=== PATIENT | male | born 1960 | race Caucasian/White ===

== ENCOUNTER 2021-12-13 13:36 | Emergency (ER) | payer MEDICAID ==
[~2021-12-13] VITALS: Ht 175.3 cm; Wt 54.0 kg
[2021-12-13] MEDS ORDERED: DIPHENHYDRAMINE 50MG/ML VIAL IM STA (17:33)
[2021-12-13] MEDS ORDERED: HALOPERIDOL LACTATE 5MG/ML VIAL IM STA (17:33)
[2021-12-13] MEDS ORDERED: DIAZEPAM 5 MG/ML 2ML CPJ IM ONE ×2 (17:45→19:15)
[2021-12-13] MEDS ORDERED: SODIUM CHLORIDE 0.9% 1,000 ML IV ONE (17:45)
[2021-12-13 18:21] LABS: BASOPHILS % 0.4 % (0.0-2.0); EOSINOPHILS % 1.4 % (0.0-5.0); HEMATOCRIT. 44.2 % (42.0-52.0); HEMOGLOBIN. 14.9 g/dL (14.0-18.0); LYMPHOCYTES % 24.2 % (20.0-50.0); MEAN CORPUSCULAR HEMOGLOBIN 33.1 pg (28.0-32.0); MEAN CORPUSCULAR VOLUME 97.9 fL (80.0-94.0); MEAN PLATELET VOLUME 9.3 fl (7.4-10.4); MONOCYTES % 9.2 % (2.0-8.0); NEUTROPHILS % 64.8 % (40.0-76.0); PLATELET 225 x1000/uL (130-400); RED BLOOD CELL COUNT 4.51 mill/uL (4.7-6.1); RED CELL DISTRIBUTION WIDTH 12.3 % (11.6-14.6)
[2021-12-13 18:24] LABS: CHLORIDE 107 mEq/L (98-107)
[2021-12-13] MEDS ORDERED: HALOPERIDOL LACTATE 5MG/ML VIAL IM NR (18:45)
[2021-12-13] MEDS ORDERED: DIATR MEGLU/DIATRIZOATE SOLN 30ML ONE (19:14)
[2021-12-14 04:55] VITALS: BP 86/60
== END 2021-12-14 05:06 ==
LOC: ER 13:36
DX: K94.23 Gastrostomy malfunction (principal); F20.9 Schizophrenia, unspecified; R45.1 Restlessness and agitation; D64.9 Anemia, unspecified
CPT/HCPCS: 36415; 74018; 80053; 85025; 96360; 96361; 96372; 99285; J1200; J1630; J3360; J7030; Q9963

== ENCOUNTER 2022-02-03 17:18 | Inpatient (IN) | payer MEDICAID ==
[~2022-02-03] VITALS: Ht 165.1 cm; Wt 52.2 kg
[2022-02-03] MEDS ORDERED: LEVETIRACETAM 500MG PREMIX 100 ML IV ONE ×2 (17:45→20:15)
[2022-02-03] MEDS ORDERED: MIDAZOLAM HCL 2 MG/2 ML VIAL IV ONE (17:45)
[2022-02-03] MEDS ORDERED: SODIUM CHLORIDE 0.9% 1000ML BAG (SEPSIS BOLUS) IV ONE (17:45)
[2022-02-03 17:56] LABS: BASOPHILS % 0.2 % (0.0-2.0); EOSINOPHILS % 1.3 % (0.0-5.0); HEMATOCRIT. 46.2 % (42.0-52.0); HEMOGLOBIN. 15.5 g/dL (14.0-18.0); LYMPHOCYTES % 10.3 % (20.0-50.0); MEAN CORPUSCULAR HEMOGLOBIN 32.8 pg (28.0-32.0); MEAN CORPUSCULAR VOLUME 97.6 fL (80.0-94.0); MEAN PLATELET VOLUME 9.4 fl (7.4-10.4); MONOCYTES % 3.9 % (2.0-8.0); NEUTROPHILS % 84.3 % (40.0-76.0); PLATELET 238 x1000/uL (130-400); RED BLOOD CELL COUNT 4.73 mill/uL (4.7-6.1); RED CELL DISTRIBUTION WIDTH 12.4 % (11.6-14.6)
[2022-02-03 18:22] LABS: CHLORIDE 107 mEq/L (98-107)
[2022-02-03 18:33] LABS: ETHANOL BLOOD < 10 mg/dL
[2022-02-03 18:45] LABS: CARBAMAZEPINE < 0.5 ug/mL (4-12); PHENOBARBITAL < 2.1 ug/mL (15.0-40.0); VALPROIC ACID < 3.0 ug/mL (50-100)
[2022-02-03 19:28] LABS: PARTIAL THROMBOPLASTIN TIME 23.6 sec (23.4-31.0); PROTHROMBIN TIME 10.6 sec (9.6-11.0)
[2022-02-03 23:36] VITALS: BP_SYST 95
[2022-02-04] VITALS (36 sets, daily range): BP systolic 59–152; BP diastolic 28–112
[2022-02-04] MEDS: DEXT 5%/0.45% NACL 1000ML 1,000 ML IV SCH ×3 (00:45→20:28)
[2022-02-04 07:27] LABS: BASOPHILS % 0.5 % (0.0-2.0); EOSINOPHILS % 1.9 % (0.0-5.0); HEMATOCRIT. 38.6 % (42.0-52.0); HEMOGLOBIN. 13.2 g/dL (14.0-18.0); LYMPHOCYTES % 26.2 % (20.0-50.0); MEAN CORPUSCULAR VOLUME 96.9 fL (80.0-94.0); MEAN PLATELET VOLUME 9.5 fl (7.4-10.4); MONOCYTES % 8.5 % (2.0-8.0); NEUTROPHILS % 62.9 % (40.0-76.0); PLATELET 181 x1000/uL (130-400); RED BLOOD CELL COUNT 3.98 mill/uL (4.7-6.1)
[2022-02-04 07:31] LABS: CHLORIDE 112 mEq/L (98-107)
[2022-02-04 12:23] LABS: BASOPHILS % 0.6 % (0.0-2.0); EOSINOPHILS % 2.7 % (0.0-5.0); HEMATOCRIT. 37.7 % (42.0-52.0); HEMOGLOBIN. 12.9 g/dL (14.0-18.0); LYMPHOCYTES % 29.8 % (20.0-50.0); MEAN CORPUSCULAR VOLUME 96.3 fL (80.0-94.0); MEAN PLATELET VOLUME 9.5 fl (7.4-10.4); MONOCYTES % 9.8 % (2.0-8.0); NEUTROPHILS % 57.1 % (40.0-76.0); PLATELET 193 x1000/uL (130-400); RED BLOOD CELL COUNT 3.92 mill/uL (4.7-6.1); RED CELL DISTRIBUTION WIDTH 12.1 % (11.6-14.6)
[2022-02-04 12:29] LABS: CHLORIDE 109 mEq/L (98-107)
[2022-02-04] MEDS ORDERED: LORAZEPAM 1MG TABLET PO PRN (13:00)
[2022-02-04] MEDS: LORAZEPAM 2MG/ML CPJ IV PRN ×2 (13:51→23:11)
[2022-02-04] MEDS: DOCUSATE SODIUM SUGAR FREE 100MG/10ML UDC GT SCH (13:57)
[2022-02-04] MEDS: ENOXAPARIN 40MG/0.4ML SYR SUBCUT SCH (13:58)
[2022-02-04] MEDS ORDERED: LORAZEPAM 2MG/ML CPJ IV NR (16:00)
[2022-02-04 17:18] LABS: CLARITY URINE CLEAR (CLEAR); COLOR URINE YELLOW (YELLOW); KETONES URINE TRACE (NEGATIVE); LEUKOCYTE ESTERASE URINE TRACE (NEGATIVE); NITRITE URINE NEGATIVE (NEGATIVE); OCCULT BLOOD URINE 2+ (NEGATIVE); PH URINE 5.5 (4.5-8.0); PROTEIN URINE 2+ (NEGATIVE); SPECIFIC GRAVITY URINE 1.024 (1.005-1.030)
[2022-02-04 17:30] LABS: *AMPHETAMINES SCREEN URINE NEGATIVE (NEGATIVE); *BARBITURATES SCREEN URINE NEGATIVE (NEGATIVE); *BENZODIAZEPINES SCREEN URINE PRESUMTIVE POSITIVE (NEGATIVE); *COCAINE SCREEN URINE NEGATIVE (NEGATIVE); CANNABINOID URINE SCREEN NEGATIVE (NEGATIVE); METHADONE URINE SCREEN NEGATIVE (NEGATIVE); OPIATES URINE SCREEN NEGATIVE (NEGATIVE); PHENCYCLIDINE URINE SCREEN NEGATIVE (NEGATIVE)
[2022-02-04] MEDS ORDERED: NA PHOS,M-B/NA PHOS,DI-BA ENEMA 118ML PR NR (17:30)
[2022-02-04] MEDS ORDERED: POLYETHYLENE GLYCOL 3350 (17GM) 1 DOSE PACK PO NR (17:30)
[2022-02-04] MEDS: HALOPERIDOL LACTATE 5MG/ML VIAL IM PRN (20:27)
[2022-02-05] VITALS (34 sets, daily range): BP systolic 102–153; BP diastolic 30–77
[2022-02-05 05:28] LABS: BASOPHILS % 0.4 % (0.0-2.0); EOSINOPHILS % 2.9 % (0.0-5.0); HEMOGLOBIN. 12.6 g/dL (14.0-18.0); LYMPHOCYTES % 27.6 % (20.0-50.0); MEAN CORPUSCULAR HEMOGLOBIN 33.4 pg (28.0-32.0); MEAN CORPUSCULAR VOLUME 95.6 fL (80.0-94.0); MEAN PLATELET VOLUME 9.4 fl (7.4-10.4); MONOCYTES % 10.2 % (2.0-8.0); NEUTROPHILS % 58.9 % (40.0-76.0); PLATELET 173 x1000/uL (130-400); RED BLOOD CELL COUNT 3.77 mill/uL (4.7-6.1); RED CELL DISTRIBUTION WIDTH 12.1 % (11.6-14.6)
[2022-02-05 05:49] LABS: CHLORIDE 110 mEq/L (98-107)
[2022-02-05] MEDS: DEXT 5%/0.45% NACL 1000ML 1,000 ML IV SCH ×2 (06:25→17:10)
[2022-02-05] MEDS: HALOPERIDOL LACTATE 5MG/ML VIAL IM PRN ×3 (06:27→17:10)
[2022-02-05] MEDS: LORAZEPAM 2MG/ML CPJ IV PRN ×2 (08:12→15:07)
[2022-02-05] MEDS: POLYETHYLENE GLYCOL 3350 (17GM) 1 DOSE PACK PO SCH (09:00)
[2022-02-05] MEDS: DOCUSATE SODIUM SUGAR FREE 100MG/10ML UDC GT SCH (09:00)
[2022-02-05] MEDS: ENOXAPARIN 40MG/0.4ML SYR SUBCUT SCH (09:58)
[2022-02-05] MEDS ORDERED: SODIUM BICARBONATE 650 MG TABLET GT SCH (10:30)
[2022-02-05] MEDS ORDERED: SODIUM BICARBONATE 650 MG TABLET GT PRN (11:00)
[2022-02-05] MEDS ORDERED: POTASSIUM CHLORIDE INJ 40 MEQ in DEXT 5% WATER 250 ML IV ONE (14:15)
[2022-02-05] MEDS: KCL 20MEQ/100ML X 2 FOR TOTAL KCL 40MEQ/200ML IV SCH ×2 (15:07→17:10)
[2022-02-05] MEDS ORDERED: MIDODRINE HCL 5MG TABLET GT PRN (20:00)
[2022-02-05 21:51] LABS: BG BASE EXCESS 0.3 mmol/L (-2.0-2.0); BG CARBOXYHEMOGLOBIN 0.3 % (0.5-1.5); BG DEOXYHEMOGLOBIN 7.8 % (0.0-5.0); BG FRACTION INSPIRED OXYGEN 21; BG HCO3 ACT 23.9 mmol/L (22.0-26.0); BG METHEMOGLOBIN 0.3 % (0.0-1.5); BG OXYGEN SATURATION 92.2 % (92.0-98.5); BG OXYHEMOGLOBIN 91.6 % (94.0-97.0); BG PCO2 35.4 mmHg (35.0-45.0); BG PH 7.448 (7.350-7.450); BG PO2 59.3 mmHg (75.0-100.0); BG SAMPLE SITE RIGHT RADIAL; BG TOTAL HEMOGLOBIN 12.9 g/dL (12.0-18.0); BG VENT MODE ROOM AIR
[2022-02-06] VITALS (7 sets, daily range): BP systolic 105–127; BP diastolic 54–71
[2022-02-06] MEDS: DEXT 5%/0.45% NACL 1000ML 1,000 ML IV SCH (05:03)
[2022-02-06 08:26] LABS: BASOPHILS % 0.3 % (0.0-2.0); EOSINOPHILS % 3.9 % (0.0-5.0); HEMATOCRIT. 38.3 % (42.0-52.0); HEMOGLOBIN. 13.3 g/dL (14.0-18.0); LYMPHOCYTES % 25.4 % (20.0-50.0); MEAN CORPUSCULAR HEMOGLOBIN 33.3 pg (28.0-32.0); MEAN PLATELET VOLUME 9.5 fl (7.4-10.4); MONOCYTES % 9.1 % (2.0-8.0); NEUTROPHILS % 61.3 % (40.0-76.0); PLATELET 182 x1000/uL (130-400); RED BLOOD CELL COUNT 3.99 mill/uL (4.7-6.1); RED CELL DISTRIBUTION WIDTH 12.1 % (11.6-14.6)
[2022-02-06 08:32] LABS: CHLORIDE 110 mEq/L (98-107)
[2022-02-06] MEDS: ENOXAPARIN 40MG/0.4ML SYR SUBCUT SCH (08:55)
[2022-02-06] MEDS: POLYETHYLENE GLYCOL 3350 (17GM) 1 DOSE PACK PO SCH (09:00)
[2022-02-06] MEDS: DOCUSATE SODIUM SUGAR FREE 100MG/10ML UDC GT SCH (09:00)
[2022-02-06] MEDS ORDERED: POTASSIUM CHLORIDE 20MEQ/PACKET PO NR (09:15)
[2022-02-06] MEDS: HALOPERIDOL LACTATE 5MG/ML VIAL IM PRN (13:10)
[2022-02-06] MEDS: POTASSIUM CHLORIDE INJ 40 MEQ in DEXT 5%/0.9% NACL 1,000 ML IV SCH (13:24)
[2022-02-07] VITALS: BP 97/49
[2022-02-07] MEDS: POTASSIUM CHLORIDE INJ 40 MEQ in DEXT 5%/0.9% NACL 1,000 ML IV SCH ×2 (00:10→09:21)
[2022-02-07 04:00] VITALS: BP 105/58
[2022-02-07 08:00] VITALS: BP 103/59
[2022-02-07] MEDS: POLYETHYLENE GLYCOL 3350 (17GM) 1 DOSE PACK PO SCH (09:00)
[2022-02-07] MEDS: DOCUSATE SODIUM SUGAR FREE 100MG/10ML UDC GT SCH (09:00)
[2022-02-07] MEDS: ENOXAPARIN 40MG/0.4ML SYR SUBCUT SCH (09:21)
[2022-02-07] MEDS ORDERED: BISACODYL 10MG SUPP PR PRN (11:00)
[2022-02-07] MEDS ORDERED: NA PHOS,M-B/NA PHOS,DI-BA ENEMA 118ML PR NR (11:15)
[2022-02-07 12:00] VITALS: BP 114/63
[2022-02-07 13:02] LABS: CHLORIDE 112 mEq/L (98-107)
[2022-02-07] MEDS ORDERED: DEXT 5%/0.9% NACL 1,000 ML IV SCH (14:09)
[2022-02-07] MEDS: DEXT 5%/0.9% NACL 1,000 ML IV SCH (14:25)
[2022-02-07 15:55] VITALS: BP 102/57
[2022-02-07 20:00] VITALS: BP 148/66
[2022-02-08] VITALS: BP 139/80
[2022-02-08 04:00] VITALS: BP 109/69
[2022-02-08 05:52] LABS: BASOPHILS % 0.4 % (0.0-2.0); EOSINOPHILS % 3.5 % (0.0-5.0); HEMATOCRIT. 39.4 % (42.0-52.0); HEMOGLOBIN. 13.4 g/dL (14.0-18.0); LYMPHOCYTES % 17.2 % (20.0-50.0); MEAN CORPUSCULAR HEMOGLOBIN 32.9 pg (28.0-32.0); MEAN PLATELET VOLUME 9.3 fl (7.4-10.4); MONOCYTES % 9.9 % (2.0-8.0); PLATELET 188 x1000/uL (130-400); RED BLOOD CELL COUNT 4.06 mill/uL (4.7-6.1); RED CELL DISTRIBUTION WIDTH 12.1 % (11.6-14.6)
[2022-02-08 06:12] LABS: CHLORIDE 112 mEq/L (98-107)
[2022-02-08 08:00] VITALS: BP 94/67
[2022-02-08] MEDS: POLYETHYLENE GLYCOL 3350 (17GM) 1 DOSE PACK PO SCH (09:00)
[2022-02-08] MEDS: ENOXAPARIN 40MG/0.4ML SYR SUBCUT SCH (09:00)
[2022-02-08] MEDS: DOCUSATE SODIUM SUGAR FREE 100MG/10ML UDC GT SCH (09:00)
[2022-02-08] MEDS: DEXT 5%/0.9% NACL 1,000 ML IV SCH (11:06)
[2022-02-08 12:00] VITALS: BP 113/58
[2022-02-08] MEDS ORDERED: IPRATROPIUM/ALBUTEROL 0.5-3(2.5)MG/3ML NEB HHN PRN (14:45)
[2022-02-08 16:00] VITALS: BP 98/64
[2022-02-08 20:00] VITALS: BP 115/61
[2022-02-09] VITALS: BP 94/58
[2022-02-09 04:00] VITALS: BP 96/52
[2022-02-09 08:00] VITALS: BP 102/60
[2022-02-09] MEDS ORDERED: DIATR MEGLU/DIATRIZOATE SOLN 30ML ONE (10:21)
[2022-02-09 12:00] VITALS: BP 111/62
[2022-02-09] MEDS: ENOXAPARIN 40MG/0.4ML SYR SUBCUT SCH (12:45)
[2022-02-09] MEDS: POLYETHYLENE GLYCOL 3350 (17GM) 1 DOSE PACK PO SCH (12:46)
[2022-02-09] MEDS: DOCUSATE SODIUM SUGAR FREE 100MG/10ML UDC GT SCH (13:05)
[2022-02-09] MEDS: DEXT 5%/0.9% NACL 1,000 ML IV SCH (13:06)
[2022-02-09 16:00] VITALS: BP 107/65
[2022-02-09 20:00] VITALS: BP 103/55
[2022-02-10] VITALS: BP 107/66
[2022-02-10 04:00] VITALS: BP 98/59
[2022-02-10 07:14] VITALS: BP 102/69
[2022-02-10 08:00] VITALS: BP 110/68
[2022-02-10] MEDS: DOCUSATE SODIUM SUGAR FREE 100MG/10ML UDC GT SCH (09:00)
[2022-02-10] MEDS: POLYETHYLENE GLYCOL 3350 (17GM) 1 DOSE PACK PO SCH (09:03)
[2022-02-10] MEDS: ENOXAPARIN 40MG/0.4ML SYR SUBCUT SCH (09:04)
== END 2022-02-10 10:15 | DRG 252 ==
LOC: ER 17:18 → 7WST 21:54 → UNDOADMIN 21:54 → EDBEDREQTM 21:57 → EDBEDREQ 21:57 → ENRESERV 22:30 → MICUNO 02-04 10:40 → 8WST 02-05 18:29
PROVIDERS: ADMIT Internal Medicine; ATTEND Internal Medicine
PROC: 0D20XUZ Change Feeding Device in Upper Intestinal Tract, External Approach (ICD-10-PCS; principal; 2022-02-08)
DX: K94.23 Gastrostomy malfunction (principal); G93.40 Encephalopathy, unspecified; N17.9 Acute kidney failure, unspecified; I95.9 Hypotension, unspecified; F03.90 Unspecified dementia, unspecified severity, without behavioral disturbance, psychotic disturbance, mood disturbance, and anxiety; R62.7 Adult failure to thrive; D53.9 Nutritional anemia, unspecified; S50.311A Abrasion of right elbow, initial encounter; E86.0 Dehydration; E87.6 Hypokalemia; F20.9 Schizophrenia, unspecified; G40.909 Epilepsy, unspecified, not intractable, without status epilepticus; K21.9 Gastro-esophageal reflux disease without esophagitis; K59.00 Constipation, unspecified; N18.1 Chronic kidney disease, stage 1; R13.12 Dysphagia, oropharyngeal phase; R32 Unspecified urinary incontinence; F41.9 Anxiety disorder, unspecified; Z20.822 Contact with and (suspected) exposure to COVID-19; X58.XXXA Exposure to other specified factors, initial encounter; Z86.73 Personal history of transient ischemic attack (TIA), and cerebral infarction without residual deficits; Z78.1 Physical restraint status; Z74.01 Bed confinement status; Z68.1 Body mass index [BMI] 19.9 or less, adult; Y93.89 Activity, other specified; Y92.89 Other specified places as the place of occurrence of the external cause; Y99.8 Other external cause status
CPT/HCPCS: 36415; 36600; 71045; 73080; 74018; 80048; 80053; 80156; 80165; 80184; 80185; 80305; 80320; 81003; 82375; 82805; 83735; 83880; 84484; 85025; 93005; 99285; A6261; J1630; J1650; J1953; J2060; J2250; J3480; J7030; J7042; Q9963; A4315; A5200; G0480

== ENCOUNTER 2023-03-24 10:24 | Emergency (ER) | payer MEDICAID ==
[~2023-03-24] VITALS: Ht 170.2 cm; Wt 60.0 kg
[2023-03-24] MEDS ORDERED: DIATR MEGLU/DIATRIZOATE SOLN 30ML PO ONE (11:00)
[2023-03-24] MEDS ORDERED: MIDAZOLAM 0.5MG/0.1ML SYR (NEONATAL-INHALATION) INH ONE (11:15)
[2023-03-24] MEDS ORDERED: MIDAZOLAM HCL 2 MG/2 ML VIAL IM NR (11:15)
[2023-03-24] MEDS ORDERED: DIATR MEGLU/DIATRIZOATE SOLN 30ML ONE (11:23)
[2023-03-24 11:45] VITALS: O2SAT 99
[2023-03-24 17:11] VITALS: BP 146/84; PULSE 92; RESP 16; TEMP 97.4
== END 2023-03-24 17:12 ==
LOC: ER 10:24
DX: K94.23 Gastrostomy malfunction (principal)
CPT/HCPCS: 43762; 96372; 99284; J2250; Z7610; Q9963

== ENCOUNTER 2023-06-28 03:47 | Emergency (ER) | payer MEDICAID ==
[~2023-06-28] VITALS: Ht 177.8 cm; Wt 44.9 kg
[2023-06-28 04:05] VITALS: BP 100/60; PULSE 90; RESP 20; TEMP 97.7; O2SAT 98
[2023-06-28] MEDS ORDERED: DIATR MEGLU/DIATRIZOATE SOLN 30ML PO ONE (06:00)
== END 2023-06-28 14:15 | disposition home or self-care (01) ==
LOC: ER 03:47
DX: K94.23 Gastrostomy malfunction (principal); Z98.890 Other specified postprocedural states; Z86.59 Personal history of other mental and behavioral disorders
CPT/HCPCS: 74018; 99283; Z7610; 99284

== ENCOUNTER 2023-10-12 11:22 | Emergency (ER) | payer MEDICARE, MEDICAID ==
[~2023-10-12] VITALS: Ht 172.7 cm; Wt 47.0 kg
[2023-10-12 11:24] VITALS: TEMP 98.3; O2SAT 100
[2023-10-12] MEDS: SODIUM CHLORIDE 0.9% 1,000 ML IV ONE (12:00)
[2023-10-12 12:09] LABS: BASOPHILS % 0.9 % (0.0-2.0); EOSINOPHILS % 4.7 % (0.0-5.0); HEMATOCRIT. 37.8 % (42.0-52.0); HEMOGLOBIN. 13.5 g/dL (14.0-18.0); LYMPHOCYTES % 28.3 % (20.0-50.0); MEAN CORPUSCULAR HGB CONC 35.8 g/dL (31.0-37.0); MEAN CORPUSCULAR VOLUME 97.9 fL (80.0-94.0); MEAN PLATELET VOLUME 8.3 fl (7.4-10.4); NEUTROPHILS % 59.1 % (40.0-76.0); PLATELET 195 x1000/uL (130-400); RED BLOOD CELL COUNT 3.86 mill/uL (4.7-6.1); RED CELL DISTRIBUTION WIDTH 12.6 % (11.6-14.6); WHITE BLOOD COUNT 2.9 x1000/uL (4.5-11.0)
[2023-10-12 12:18] LABS: INR 0.9; PROTHROMBIN TIME 10.6 sec (9.6-11.0)
[2023-10-12 12:19] LABS: CHLORIDE 104 mEq/L (98-107); SODIUM 138 mEq/L (136-145)
[2023-10-12 12:20] LABS: CALCIUM 9.4 mg/dL (8.7-10.4); CARBON DIOXIDE 32 mEq/L (21-32)
[2023-10-12 12:25] LABS: CREATININE 0.7 mg/dL (0.6-1.3); GLUCOSE 84 mg/dL (70-105); UREA NITROGEN BLOOD 17 mg/dL (9-23)
[2023-10-12] MEDS: DIATR MEGLU/DIATRIZOATE SOLN 30ML ONE (19:50)
[2023-10-12 20:14] VITALS: BP 92/57; PULSE 69; RESP 16
== END 2023-10-12 20:16 ==
LOC: ER 11:22 → CANBEDREQ 18:19 → ER 20:16
DX: Z43.1 Encounter for attention to gastrostomy (principal); D64.9 Anemia, unspecified; J44.9 Chronic obstructive pulmonary disease, unspecified; F03.90 Unspecified dementia, unspecified severity, without behavioral disturbance, psychotic disturbance, mood disturbance, and anxiety; K21.9 Gastro-esophageal reflux disease without esophagitis
CPT/HCPCS: 99284; 43762; 96360; 80048; 85025; 85610; 36415; 74018; Q9963; J7030

== ENCOUNTER 2023-12-03 22:19 | Emergency (ER) | payer MEDICARE, MEDICAID ==
[~2023-12-03] VITALS: Ht 170.2 cm; Wt 54.0 kg
[2023-12-03 22:32] VITALS: BP 136/74; PULSE 74; RESP 18; TEMP 97.6; O2SAT 95
[2023-12-03] MEDS ORDERED: DIATR MEGLU/DIATRIZOATE SOLN 30ML ONE (23:54)
== END 2023-12-04 00:45 | disposition home or self-care (01) ==
LOC: ER 22:19
DX: Z43.1 Encounter for attention to gastrostomy (principal); J44.9 Chronic obstructive pulmonary disease, unspecified; F03.90 Unspecified dementia, unspecified severity, without behavioral disturbance, psychotic disturbance, mood disturbance, and anxiety
CPT/HCPCS: 99284; 43762; 74018; Q9963